=== PATIENT | male | born 1955 | race Caucasian/White ===

== ENCOUNTER → 2017-05-03 | Outpatient (CLI) | payer OTHER ==
[~2017-05-03] MED LIST: OMNIPAQUE 350 MG/ML, 100ML BOTTLE ONE
== END | disposition home or self-care (01) ==
LOC: CFH 15:06
PROVIDERS: ATTEND Otolaryngology
DX: C14.0 Malignant neoplasm of pharynx, unspecified (principal); C00.2 Malignant neoplasm of external lip, unspecified; K11.20 Sialoadenitis, unspecified
CPT/HCPCS: 70491; 82565; Q9967